=== PATIENT | male | born 1995 | race Hispanic/Latino ===

== ENCOUNTER 2016-07-24 18:02 | Observation (INO) | payer SELFPAY ==
[2016-07-24] VITALS (11 sets, daily range): BP systolic 114–143; BP diastolic 45–79; PULSE 56–82; RESP 12–21; O2SAT 96–100
[~2016-07-24] VITALS: Ht 172.7 cm; Wt 83.3 kg
[2016-07-24 19:03] LABS: BASOPHILS % (AUTO) 0.4 % (0-3); EOSINOPHILS % (AUTO) 0.5 % (0-5); MONOCYTES % (AUTO) 5.9 % (4-12); Mean Corpuscular Hemoglobin 30.5 pg (27.0-35.0); Mean Corpuscular Volume 87.3 fL (81-100); NEUTROPHILS % (AUTO) 76.9 % (40-74); Platelet Count 198 bil/L (150-400)
[2016-07-24 19:13] LABS: APPEARANCE,URINE CLEAR (CLEAR,HAZY); COLOR,URINE YELLOW (YELLOW); OCCULT BLOOD,URINE NEGATIVE (NEGATIVE); PH,URINE 5.5 (5.0-8.0); UROBILINOGEN,URINE NORMAL (NORMAL)
--- NOTE | 2016-07-24 19:25 | ED.REPORT ---
HPI-Abd Pain M Under 40 Date of Service Jul 24, 2016 ED Provider: Ferny Truong MD Pt is a 20 y.o. male who presents to the ED from c/o severe abdominal pain, worse on left, onset 1800 today. Pt reports associated nausea. He denies vomiting, fever, cough, and rhinorrhea. He also denies prior abdominal surgeries. Nursing Notes Stated Complaint: STOMACH PAIN Chief Complaint: Male Abdominal Pain Nursing Notes Reviewed: Yes Allergies: Coded Allergies: No Known Allergies (Unverified , 07/24/16) No Active Prescriptions or Reported Meds General Time Seen by MD: 19:00 Chief Complaint Abdominal pain Hx Obtained From: Patient Arrived By: Walk-in Sudden in Onset?: Yes Onset Occurred: 1 - 4 hours ago Symptom Duration: Since onset Location: : Diffuse: LLQ: LUQ Quality: Painful Severity: Current: Severe Context Related History: Denies: Abdominal surgery Recent Healthcare: No recent doctor visit, No recent hospitalization Similar Sx Previous: No Past Medical History Past Medical History None reported Past Surgical History None reported Social History Alcohol Use: Denies alcohol use Drug Use: Denies drug use Ambulatory Status Independent Review of Systems Constitutional: Denies: Fever Respiratory: Denies: Non-productive cough GI: Reports: Abdominal pain, Nausea, Denies: Vomiting Complete sys rev & neg: except as marked. Allergy / Immune: Denies: Rhinorrhea Physical Exam Initial Vital Signs Vital Signs (First) Date Time Temp Pulse Resp B/P Pulse Ox O2 Delivery O2 Flow Rate FiO2 07/24/16 18:28 36.8 66 18 143/79 99 Room Air Initial VS: Reviewed Head / Eyes: Atraumatic, Normocephalic Extremities: Vascular intact, Neuro intact Skin: Warm, Dry, No cyanosis Neurologic: Alert, Oriented, Nonfocal Psychiatric: Mood/affect normal, Behavior normal, Normal thought content General/Constitutional: Awake, Alert, Well developed, Well hydrated, Well nourished, Not toxic appearing Appearance / Presentation: Positive: In pain Respiratory / Chest: Atraumatic, Breath sounds NL, Breath sounds = bilat, No respiratory distress, No rales, No rhonchi, No wheezing, No retractions, No stridor Cardiovascular: Heart rate NL, Regular rhythm, Heart sounds NL, Peripheral circulation NL Abdomen: Atraumatic, Soft Tenderness/Guarding/Rebound: Positive: Tender LLQ..., Tender LUQ..., Tender RLQ..., Tender diffuse Back: Atraumatic Interpretation & Diagnostics Lab Results Interpretation Result Diagram: 07/24/16 1855 07/24/16 1855 Test 07/24/16 18:55 07/24/16 19:01 White Blood Count 12.4th/mm3 (3.8-10.1) Red Blood Count 4.79mil/mm3 (4.40-5.80) Hemoglobin 14.6g/dL (13.8-17.2) Hematocrit 41.8% (41.0-50.0) Mean Corpuscular Volume 87.3fL (81-100) Mean Corpuscular Hemoglobin 30.5pg (27.0-35.0) Mean Corpuscular Hemoglobin Concent 34.9% (32.0-37.0) Red Cell Distribution Width 12.6% (12.3-15.4) Platelet Count 198bil/L (150-400) Neutrophils (%) (Auto) 76.9% (40-74) Lymphocytes (%) (Auto) 16.1% (14-46) Monocytes (%) (Auto) 5.9% (4-12) Eosinophils (%) (Auto) 0.5% (0-5) Basophils (%) (Auto) 0.4% (0-3) Sodium Level 138mEq/L (134-144) Potassium Level 4.1mEq/L (3.5-5.2) Chloride Level 99mEq/L (97-108) Carbon Dioxide Level 24mmol/L (18-29) Blood Urea Nitrogen 13mg/dL (6-20) Creatinine 0.90mg/dL (0.76-1.27) Estimat Glomerular Filtration Rate 116mL/min (>59) Glucose Level 94mg/dL (60-99) Lactic Acid Level 0.7mmol/L (0.4-2.0) Calcium Level 9.6mg/dL (8.5-10.1) Magnesium Level 1.8mg/dL (1.6-2.6) Total Bilirubin 0.9mg/dL (0.0-1.2) Aspartate Amino Transf (AST/SGOT) 33U/L (0-50) Alanine Aminotransferase (ALT/SGPT) 23U/L (0-44) Alkaline Phosphatase 61U/L (25-150) Total Protein 7.1g/dL (6.4-8.4) Albumin 4.6g/dL (3.4-5.0) Lipase 13U/L (13-60) Hold Bateman Top Tube Received (Received) Urine Color Yellow (YELLOW) Urine Appearance Clear (CLEAR,HAZY) Urine pH 5.5 (5.0-8.0) Urine Specific [place] 1.030 (1.003-1.035) Urine Protein Negativemg/dL (NEG,TRACE) Urine Glucose (UA) Negativemg/dL (NEGATIVE) Urine Ketones 80mg/dL (NEGATIVE) Urine Occult Blood Negative (NEGATIVE) Urine Nitrite Negative (NEGATIVE) Urine Bilirubin Negative (NEGATIVE) Urine Urobilinogen Normalmg/dL (NORMAL) Urine Leukocyte Esterase Negative (NEGATIVE) Urine RBC 0-2/hpf (0-2) Urine WBC 0-5/hpf (0-5) Urine Epithelial Cells None/hpf (NONE-MOD) Urine Crystals None seen (NONE SEEN) Urine Bacteria Few/hpf (NONE-FEW) Urine Hyaline Casts None/lpf (NONE) Urine Granular Casts None seen (NONE SEEN) Urine Waxy Casts None seen (NONE SEEN) Urine Red Blood Cell Casts None seen (NONE SEEN) Urine White Blood Cell Casts None seen (NONE SEEN) Urine Mucus Present (None Seen) Urine Trichomonas None seen (NONE SEEN) Urine Yeast None (NONE SEEN) Urinalysis Comment None Urine Culture Reflexed Not indicated General Lab Results Interp 1: CBC - leukocytosis CT Abd / Pelvis Interpretation IMPRESSION: 1. Acute appendicitis with small amount of free fluid in the right lower quadrant and pelvis suspicious for possible rupture. No discrete abscess collection or free air. Findings discussed with Dr. Truong on 07/24/16 at 8:18 p.m. 2. Mild concentric bladder wall thickening may be due to nondistention or a nonspecific mild cystitis. Dictated by: Castillo Moore M.D. on 07/24/2016 at 20:15 Approved by: Castillo Moore M.D. on 07/24/2016 at 20:20 Re-Eval/Medical Decision Med Decision/Clinical Course 20-year-old male with acute appendicitis. Possible perforation. Discussed with Dr. Sampson and will take to surgery. Zosyn given. Last by mouth last night. Source of Hx: Old records Re-Evaluation/Progress : Time of Eval: 20:37 Re-Evaluation/Progress Note: Pt rechecked. Discussed imaging results and plan to admit, pt understands and agrees with plan. Consultation : Referral / Consult Name: Sanchez Sampson MD Consulted With: Surgeon Call Returned at: 20:24 Repair Cameraman: Will see patient, Accepts admit Note: Discussed pt condition, accepts admit. Will see pt in ED to evaluate. Counseled Regarding: Diagnosis Patient Discharge & Departure Primary Impression: Acute appendicitis Disposition: ADMITTED TO HOSPITAL Discharge Condition All VS Reviewed: Yes Condition: Stable Referrals: NOPCP (PCP) Scribe Attestation Portions of this note were transcribed by Payton Hollins. I, Dr. Truong personally performed the history, physical exam and medical decision-making; I reviewed and confirmed the accuracy of the information in the transcribed note. Signed by: Shabbir Finnegan, 07/24/16 and 2038. Ferny Truong MD Jul 24, 2016 19:25 PAYTON HOLLINS Jul 24, 2016 19:29
[2016-07-24 19:29] LABS: Magnesium 1.8 mg/dL (1.6-2.6)
[2016-07-24] MEDS ORDERED: 0.9% Sodium Chloride 1,000 ML IV ONE ×2 (19:30→20:10)
[2016-07-24] MEDS ORDERED: Ondansetron 2 mg/mL 2 mL Inj IVPUSH PRN ×3 (19:30→23:15)
--- NOTE | 2016-07-24 20:21 | DRSVH ---
PROCEDURE: CT ABDOMEN AND PELVIS WITH CONTRAST ([id number]) INDICATIONS: ABDOMEN PAIN TECHNIQUE: After the administration of oral and intravenous contrast, 5 mm thick sections acquired from the diap hragms to the symphysis. 5 mm thick coronal and sagittal reformats were performed. For radiation do se reduction, the following was used: automated exposure control, adjustment of mA and/or kV accordi ng to patient size. COMPARISON: None. FINDINGS: Image quality: Excellent. ABDOMEN: Lung bases: Lung bases are clear. Heart size is normal. Solid organs: Liver and spleen are normal in size and enhancement. Gallbladder is within normal sy its without calcified gallstones. Biliary system is non-dilated. Pancreas enhances normally. No ad renal nodules. Kidneys are normal in size and enhancement, without hydronephrosis. Peritoneum and bowel: Stomach, small bowel, and colon loops are normal in caliber and wall thickness . The appendix is mildly distended, measuring up to 8 mm, with wall enhancement. There is periappen diceal fat stranding and a small amount of free fluid in the right paracolic gutter. A small amount of free fluid is also demonstrated in the pelvis. No discrete abscess collection or free air. Nodes and vessels: No retroperitoneal or mesenteric adenopathy. Aorta and inferior vena cava are no rmal in caliber. Miscellaneous: No ventral hernias. PELVIS: Genitourinary: The urinary bladder is partially distended with suggestion of mild concentric wall thi ckening. Miscellaneous: No inguinal hernias or adenopathy. Bones: No suspicious bony lesions. No vertebral body compression fractures. IMPRESSION: 1. Acute appendicitis with small amount of free fluid in the right lower quadrant and pelvis suspici ous for possible rupture. No discrete abscess collection or free air. Findings discussed with Dr. Rodrigo Magaña on 07/24/16 at 8:18 p.m. 2. Mild concentric bladder wall thickening may be due to nondistention or a nonspecific mild cystiti s. Dictated by: Castillo Moore M.D. on 07/24/2016 at 20:15 Approved by: Castillo Moore M.D. on 07/24/2016 at 20:20
[2016-07-24] MEDS ORDERED: Piperacillin-Tazo 3.375 Gm Inj 3.375 GM in Dextrose 5% Minibag Plus 50 ML IV ONE (20:30)
[2016-07-24] MEDS ORDERED: Ondansetron 2 mg/mL 2 mL Inj ONE (20:53)
[2016-07-24] MEDS ORDERED: HYDROmorphone 2 mg/mL Inj ONE (20:53)
[2016-07-24] MEDS ORDERED: Glycopyrrolate 0.2 mg/mL 5 mL Inj ONE (20:53)
[2016-07-24] MEDS ORDERED: Rocuronium 10 mg/mL 5 mL Inj ONE (20:53)
[2016-07-24] MEDS ORDERED: Propofol 10,000 mCg/mL 20 mL Inj ONE (20:53)
[2016-07-24] MEDS ORDERED: fentaNYL-PF 50 mCg/mL 2 mL Inj ONE (20:53)
[2016-07-24] MEDS ORDERED: Dexamethasone 4 mg/mL Inj ONE (20:53)
[2016-07-24] MEDS ORDERED: Lidocaine PF 1% 30 mL Inj ONE (20:53)
[2016-07-24] MEDS ORDERED: Neostigmine 1 mg/mL 5 mL Inj ONE (20:53)
[2016-07-24] MEDS ORDERED: Lactated Ringer's 1,000 ML IV ONE ×2 (21:49→21:54)
[2016-07-24] MEDS ORDERED: Lactated Ringer's 1,000 ML IV SCH (21:49)
[2016-07-24] MEDS ORDERED: Lactated Ringer's 500 ML IV PRN (21:49)
--- NOTE | 2016-07-24 21:49 | PCM.HPANE ---
Patient Data Date of Service: Jul 24, 2016 Surgeon Admitting Provider:Sanchez Sampson MD Attending Provider:Sanchez Sampson MD Primary Care Physician:Hemalatha Other Provider:Andi Enciso Anesthesia Reason for Visit Appendicitis Ht/WT & BMI Height (Feet): 5 Height (Inches): 8 Weight (Kilograms): 82.27 Body Mass Index Allergies Coded Allergies: No Known Allergies (Unverified , 07/24/16) Diabetes History Hx Diabetes?: No Medications Home Meds Incl Beta Mark: No No Active Prescriptions or Reported Meds History Hx of Heart Problems?: No Cardiovascular History: Denies:: Congestive Heart Failure Hypertension Hx of Respiratory Problem?: No Respiratory History: Denies:: Tuberculosis Hx Neurologic Problems?: No Hx Surgeries?: No Hx Diabetes: No Hx Alcohol Use: NoHx Substance Use: NoHave You Smoked inLast 12 mo: No Stop/Bang KATYA Risk Assessment: Low Risk, <3 Yes Risk Assessment Category Category 1A: Patient has history of documented sleep apnea, and HAS NOT received any narcotic, sedative or anesthesia administration during this stay. Category 1B: Patient has history of documented sleep apnea, and HAS received any narcotic , sedative or anesthesia administration during this stay Category 2: Patient has SUSPECTED Obstructive Sleep Apnea, and HAS received any narcotic , sedative or anesthesia administration during this stay. Category 3: Patient has SUSPECTED Obstructive Sleep Apnea and HAS NOT received narcotic, sedative or anesthesia administration during this stay. Category 4: Outpatient in Procedural Areas with known sleep apnea or who screen positive for High Risk via the STOP/BANG questionnaire. Exam Exam Vital Signs Vital Signs Date Time Temp Pulse Resp B/P Pulse Ox O2 Delivery O2 Flow Rate FiO2 07/24/16 20:10 37 68 16 130/68 98 Room Air 07/24/16 19:35 36.8 72 20 136/72 100 Room Air 07/24/16 18:28 36.8 66 18 143/79 99 Room Air General Appearance: Alert, Oriented X3, Cooperative, Mild Distress HEENT/AIRWAY: MP 2 Lungs: Normal Air Movement Heart: Exam Unremarkable Meds/Labs/Diagnostics Admission Meds Current Medications Sodium Chloride 1,000 ml @ 0 mls/hr Q0M ONCE IV Last administered on t 19:44; Start 07/24/16 at 19:30; Stop 07/24/16 at 19:32; Status DC Sodium Chloride 1,000 ml @ 0 mls/hr Q0M ONCE IV Last administered on 20:15; Start 07/24/16 at 20:10; Stop 07/24/16 at 20:11; Status DC Piperacillin Sod/ Tazobactam Sod/ Dextrose/Water (Zosyn 3.375 Gm Inj/D5W Minibag Plus) 50 ml @ 100 mls/hr ONCE ONCE IV Last administered on 07/24/16 20:51; Start 07/24/16 at 20:30; Stop 07/24/16 at 20:59; Status DC Labs Test 07/24/16 18:55 07/24/16 19:01 White Blood Count 12.4th/mm3 (3.8-10.1) Red Blood Count 4.79mil/mm3 (4.40-5.80) Hemoglobin 14.6g/dL (13.8-17.2) Hematocrit 41.8% (41.0-50.0) Mean Corpuscular Volume 87.3fL (81-100) Mean Corpuscular Hemoglobin 30.5pg (27.0-35.0) Mean Corpuscular Hemoglobin Concent 34.9% (32.0-37.0) Red Cell Distribution Width 12.6% (12.3-15.4) Platelet Count 198bil/L (150-400) Neutrophils (%) (Auto) 76.9% (40-74) Lymphocytes (%) (Auto) 16.1% (14-46) Monocytes (%) (Auto) 5.9% (4-12) Eosinophils (%) (Auto) 0.5% (0-5) Basophils (%) (Auto) 0.4% (0-3) Sodium Level 138mEq/L (134-144) Potassium Level 4.1mEq/L (3.5-5.2) Chloride Level 99mEq/L (97-108) Carbon Dioxide Level 24mmol/L (18-29) Blood Urea Nitrogen 13mg/dL (6-20) Creatinine 0.90mg/dL (0.76-1.27) Estimat Glomerular Filtration Rate 116mL/min (>59) Glucose Level 94mg/dL (60-99) Lactic Acid Level 0.7mmol/L (0.4-2.0) Calcium Level 9.6mg/dL (8.5-10.1) Magnesium Level 1.8mg/dL (1.6-2.6) Total Bilirubin 0.9mg/dL (0.0-1.2) Aspartate Amino Transf (AST/SGOT) 33U/L (0-50) Alanine Aminotransferase (ALT/SGPT) 23U/L (0-44) Alkaline Phosphatase 61U/L (25-150) Total Protein 7.1g/dL (6.4-8.4) Albumin 4.6g/dL (3.4-5.0) Lipase 13U/L (13-60) Hold Bateman Top Tube Received (Received) Urine Color Yellow (YELLOW) Urine Appearance Clear (CLEAR,HAZY) Urine pH 5.5 (5.0-8.0) Urine Specific [place] 1.030 (1.003-1.035) Urine Protein Negativemg/dL (NEG,TRACE) Urine Glucose (UA) Negativemg/dL (NEGATIVE) Urine Ketones 80mg/dL (NEGATIVE) Urine Occult Blood Negative (NEGATIVE) Urine Nitrite Negative (NEGATIVE) Urine Bilirubin Negative (NEGATIVE) Urine Urobilinogen Normalmg/dL (NORMAL) Urine Leukocyte Esterase Negative (NEGATIVE) Urine RBC 0-2/hpf (0-2) Urine WBC 0-5/hpf (0-5) Urine Epithelial Cells None/hpf (NONE-MOD) Urine Crystals None seen (NONE SEEN) Urine Bacteria Few/hpf (NONE-FEW) Urine Hyaline Casts None/lpf (NONE) Urine Granular Casts None seen (NONE SEEN) Urine Waxy Casts None seen (NONE SEEN) Urine Red Blood Cell Casts None seen (NONE SEEN) Urine White Blood Cell Casts None seen (NONE SEEN) Urine Mucus Present (None Seen) Urine Trichomonas None seen (NONE SEEN) Urine Yeast None (NONE SEEN) Urinalysis Comment None Urine Culture Reflexed Not indicated Plan Impression Patient chart reviewed, patient interviewed and anesthestic plan with risks, benefits, and alternatives discussed, and informed consent obtained. ASA Physical Status: ASA1 Normal Healthy Anesthetic Plan: GA Bene/Risks/Altern/Consents: Yes HP Complete Prior to Induction: Yes Luciano Akhtar MD Jul 24, 2016 21:33
[2016-07-24] MEDS ORDERED: Dexamethasone 4 mg/mL Inj IVPUSH PRN (21:50)
[2016-07-24] MEDS ORDERED: fentaNYL-PF 50 mCg/mL 2 mL Inj IVPUSH PRN (21:50)
[2016-07-24] MEDS ORDERED: MetoCLOpramide 5 mg/mL 2 mL Inj IVPUSH PRN (21:50)
[2016-07-24] MEDS ORDERED: Atropine 0.4 mg/mL Inj IVPUSH PRN (21:50)
[2016-07-24] MEDS ORDERED: Phenylephrine 10,000 mCg/mL Inj IVPUSH PRN (21:50)
[2016-07-24] MEDS ORDERED: EPHEDrine Sulfate 50 mg/mL Inj IVPUSH PRN (21:50)
[2016-07-24] MEDS ORDERED: Labetalol 5 mg/mL 4 mL Inj IV PRN (21:50)
[2016-07-24] MEDS ORDERED: hydrALAZINE 20 mg/mL Inj IVPUSH PRN (21:50)
[2016-07-24] MEDS ORDERED: HYDROmorphone 1 mg/mL Inj IVPUSH PRN (21:50)
[2016-07-24] MEDS ORDERED: Bupivacaine-MPF 0.5% W/EPI 30 mL Inj INFILTRATE ONE (21:59)
--- NOTE | 2016-07-24 23:00 | PCM.ANEP1 ---
Post Anesthesia Phase 1 PACU Phase 1 Assessment Date of Service: Jul 24, 2016 Vital Signs Vital Signs Date Time Temp Pulse Resp B/P Pulse Ox O2 Delivery O2 Flow Rate FiO2 07/24/16 20:10 37 68 16 130/68 98 Room Air 07/24/16 19:35 36.8 72 20 136/72 100 Room Air 07/24/16 18:28 36.8 66 18 143/79 99 Room Air Anesthetic Administered: GA Level of Alertness: Drowsy, not talking Pain: No Nausea or Vomiting: No Airway Device: Oralpharangeal Airway Oxygen Delivery: Simple Mask Lungs: Normal Air Movement Luciano Akhtar MD Jul 24, 2016 23:00
[2016-07-24] MEDS ORDERED: diphenhydrAMINE 25 mg Capsule PO PRN (23:15)
[2016-07-24] MEDS ORDERED: HYDROmorphone 0.5 mg/0.5 mL iSecure Syringe IV PRN (23:15)
[2016-07-24] MEDS ORDERED: Acetaminophen IV 1,000 MG in IV Premix 1 EACH IV PRN (23:15)
[2016-07-24] MEDS ORDERED: Polyethylene Glycol (PEG) 17 Gm Powder PO ONE (23:15)
[2016-07-25] MEDS: D5 0.45% NaCl + KCl 20 mEq/L 1,000 ML IV SCH ×2 (00:05→09:15)
--- NOTE | 2016-07-25 00:10 | NUR ---
Arrival on [facility] Report taken from recovery at 2325. pt arrives on unit at 2355 sleeping on bed. VSS and pt drowsy, family and friends come in to room to visit. Pt does open his eyes and respond to [employer] questions as well as family. No complaints of N/V or pain. PT and his parents are bilingual, admission sheet to be completed when pt is better able to respond. Pt on Room air, TELE, running IVF D5 1/2NS with 20K at 100 ml/hr, dressings CDI.
--- NOTE | 2016-07-25 00:26 | HP PRE OP ---
[address] [address] PREOPERATIVE HISTORY AND PHYSICAL PATIENT: HARISH SMITH : 1995 MR#: [id number] ADMIT: 07/24/2016 JOB ID: [id number] CHIEF COMPLAINT/IDENTIFICATION: A 20-year-old male in the emergency department with probable appendicitis. HISTORY OF PRESENT ILLNESS: The patient presents with abdominal pain that has progressed since early today. Has associated nausea, no vomiting, no diarrhea. Otherwise healthy. PAST MEDICAL HISTORY: Unremarkable. MEDICATIONS: None. ALLERGIES: None. SOCIAL HISTORY: Lives with his parents. Negative tobacco. Negative daily alcohol. He is in college, as well as works at [employer]. FAMILY HISTORY: Noncontributory. REVIEW OF SYSTEMS: Negative. PHYSICAL EXAMINATION: Vital signs recorded in the chart. He appears uncomfortable, holding quite still. He has both right lower quadrant and left lower quadrant tenderness to palpation and percussion. LABORATORIES: White count is 12.4, hematocrit is 42. Electrolytes are normal. LFTs are normal. Urine is negative. Abdominal CT scan. I have reviewed both the films and report. I concur that the findings are most consistent with acute appendicitis. IMPRESSION AND PLAN: Probable acute appendicitis. I have recommended laparoscopic appendectomy. After full discussion of risks, benefits and possible complications appendectomy. He agrees to proceed. He has been n.p.o. since last night. We will proceed with surgery today.
--- NOTE | 2016-07-25 00:39 | PCM.ANEP2 ---
Post Anesthesia Evaluation ASA/CMS Post Anesthesia Date of Service: Jul 25, 2016 VS in Patient's Normal Range?: Yes Resp Stable; Airway Patent?: Yes CV Function & Hydration Stable: Yes Mental Status Recovered?: Yes Pain control Satisfactory?: Yes N/V Control Satisfactory?: Yes Luciano Akhtar MD Jul 25, 2016 00:39
--- NOTE | 2016-07-25 00:43 | OP ---
[address] [address] OPERATIVE REPORT PATIENT: HARISH SMITH : 1995 MR#: [id number] ADMIT: 07/24/2016 JOB ID: [id number] DATE OF SURGERY: 07/24/2016 PREOPERATIVE DIAGNOSIS(ES): Appendicitis. POSTOPERATIVE DIAGNOSIS(ES): Final diagnosis pending pathologic review. SURGEON: Sanchez Sampson MD. PROCEDURE: Laparoscopic appendectomy. INDICATION: A 20-year-old male who presented with signs and symptoms consistent with appendicitis. His examination demonstrated bilateral lower abdominal tenderness, right greater than left, white count of 12.4, and a CT scan with an abnormal appendix consistent with acute appendicitis. He is brought to the operating room for laparoscopic appendectomy. FINDINGS: Possible negative appendectomy. See below for details. PROCEDURE: Patient brought to the operating room. SCOAP protocol was followed. He had received therapeutic antibiotics in the emergency department approximately two hours prior to incision time, and the decision was made not to repeat his antibiotic dosing. A time-out was performed. The abdomen was prepped and draped in sterile fashion. We obtained access with a Veress needle, followed by placement of optical trocars. There was no free air. There was a minimal amount of clear free fluid in the pelvis. The patient was placed head down and tilted to the left. He had a fairly high cecum and we could identify normal-appearing base of the appendix, retrocecal appendix. There is no sign of a great deal of inflammation behind the cecum as the appendix went up along the right paracolic gutter, almost to the hepatic flexure. At this point, because the appendix was not clearly inflamed, in the right gutter I proceeded to explore the remaining abdomen. Down in the pelvis there was no ongoing inflammation. The bladder was not inflamed. The fluid in the pelvis was fairly clear and serous. We ran the small bowel midway to the ligament of Treitz and did not identify any abnormality, specifically no Meckel's diverticulum and no evidence of mesenteric fat wrapping consistent with inflammatory bowel disease. The patient's mesenteric lymph nodes do not seem abnormally enlarged as well. 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 However, there was no acute inflammation. We looked up above the stomach and there was no sign of a perforated gastric ulcer, no fluid that was visible in the lesser sac. At the end of the procedure, we did take down some of the adhesions from the right colon up around the gallbladder and there was no sign of a duodenal ulcer or thickening of the bowel or sign of acute perforation. We now turned our attention back to the appendix. We dissected out the base of the appendix and divided it right at the base of the stapler. I was then able to retract the colon medially and used cautery to stay right on the appendix and take down the mesoappendix, which was mildly edematous but without hyperemia or acute inflammation. The appendix was quite long and we extended it in a retrocecal fashion up to the hepatic flexure. We took the appendix down with cautery just at its mesenteric origin and hemostasis was good. We removed the appendix without wound contamination through the 12 mm port. We now inspected the area and still could not see any sign of perforation or acute inflammation other than some edema. We now irrigated out the abdomen with a copious amount of saline, suctioned out all of our irrigation, checked for hemostasis, and then removed the ports under laparoscopic vision followed by abdominal wall and skin closure with absorbable suture. The patient tolerated the procedure well.
[2016-07-25 04:17] VITALS: BP 128/64; PULSE 98; RESP 20; O2SAT 98
[2016-07-25] MEDS ORDERED: Ibuprofen PO (10:05)
[2016-07-25] MEDS ORDERED: OXYC5TAB72 PO (10:05)
--- NOTE | 2016-07-25 10:08 | PCM.DISURG ---
Surgical Discharge Instruction Date of Service Jul 25, 2016 Dates of Hospitalization Date of Hospital Admission Jul 24, 2016 at 20:52 Providers Admitting Physician: Sanchez Sampson MD Primary Care Physician: Hemalatha Attending Physician: Sanchez Sampson MD Discharge Diagnosis Discharge Diagnosis Appendicitis Post Operative diagnosis Laparoscopic appendectomy Diet Discharge Diet: No restrictions Activity Discharge Activity-General: No lifting >15 pounds for 2 weeks, No driving while taking narcotic Dressing and Incisional Care Dressing Care: Allow Steri Stripes to fall off, Remove outer dressing after 24 hrs Hygiene: May shower Additional Instructions Discharge Instructions You may return to normal activity as you feel better. You had emergency surgery and may require reduced schedule or activity at work and/or school over the next 4 weeks Follow Up Plan Follow Up Plan with [facility] in 1-2 weeks for routine review of pathology and wound check Sanchez Sampson MD Jul 25, 2016 10:08
--- NOTE | 2016-07-25 10:53 | PROG NOTE ---
[address] [address] PROGRESS NOTE PATIENT: HARISH SMITH : 1995 MR#: [id number] ADMIT: 07/24/2016 JOB ID: [id number] DATE: 07/25/2016 SUBJECTIVE: Postop day one laparoscopic appendectomy. Despite the fact that his appendix did not look all that inflamed, he feels significantly better than prior to surgery. He has tolerated a p.o. diet. He is afebrile with stable vital signs. His dressings are intact without undue erythema or bleeding. IMPRESSION AND PLAN: Doing well. I will discharge him.
[2016-07-25 11:54] VITALS: BP 138/68; PULSE 62; RESP 16; O2SAT 98
--- NOTE | 2016-07-25 13:00 | NUR ---
Pain/dizziness Pt had D/C orders, had not yet been out of bed, got pt up, pt stated he was dizzy and nauseous and pain became bad, administered 4mg IV Zofran, and PO Ibuprofen. pt stated pain improved and the nausea was gone. Pt attempted to get up again an hour later, pt stated pain became very bad to the point he was shaking, administered PO oxycodone, pt slept for an hour. and pain was mostly gone when he awoke.
--- NOTE | 2016-07-25 13:09 | PCM.DC.SUR ---
Discharge Summary Date of Service: Jul 25, 2016 Date of Hospital Admission: Jul 24, 2016 at 20:52 Date of Operation(s): 07/24/16 Date of Discharge: 07/25/16 Diagnosis at Time of Discharge Appendicitis Problems: Operation Laparscopic Appendectomy Brief History and Physical: A 20-year-old male who presented with signs and symptoms consistent with appendicitis. His examination demonstrated bilateral lower abdominal tenderness , right greater than left, white count of 12.4, and a CT scan with an abnormal appendix consistent with acute appendicitis. He is brought to the operating room for laparoscopic appendectomy. Consultants: General surgery; Dr. Sanchez Sampson [facility] Course: POD # [address] Sampson's progress note SUBJECTIVE: Postop day one laparoscopic appendectomy. Despite the fact that his appendix did not look all that inflamed, he feels significantly better than prior to surgery. He has tolerated a p.o. diet. He is afebrile with stable vital signs. His dressings are intact without undue erythema or bleeding. IMPRESSION AND PLAN: Doing well. I will discharge him. Pathology: Pending Disposition: Home Follow-up Plan: [facility] Clinic in 1-2 weeks for routine review of pathology and wound check ([Ibuprofen]) 200 MG TABLET 200 MG PO QID PRN PRN For Pain take 1 or 2 pills every 6 hours as needed oxyCODONE (oxyCODONE) 5 Mg Tablet 5 MG PO Q4H PRN PRN For Moderate Pain Alexandria Bae PA-C Jul 25, 2016 13:09
--- NOTE | 2016-07-25 13:11 | NUR ---
Social Work:screening/discharge: Data:EMR reviewed. Pt is a 20 y/o male who was admitted on 07/24/16 for appendicitis per H&P. Pt is medically stable to discharge home today. RCA to screen pt for insurance. Pt has been up ambulating independent in his room. No discharge needs identified. All updated and agreeable to plan. Assessment:Pt who is independent at baseline. Plan:Pt to discharge home today via POV. No discharge needs identified. All updated and agreeable to plan. VIKTORIYA Sotelo
--- NOTE | 2016-07-25 18:18 | NUR ---
Discharge Pt left with family in stable condition with all belongings at 1530, IV d/c'd, pt pain well under control, no complaints of dizziness or nausea. Instructions for scheduling follow up appointment given.
--- NOTE | 2016-07-26 01:45 | DIS ---
[address] [address] DISCHARGE SUMMARY PATIENT: HARISH SMITH : 1995 MR#: [id number] ADMIT: 07/24/2016 JOB ID: [id number] DIS: 07/25/2016 DISCHARGE DIAGNOSIS: Appendicitis. OPERATIONS AND PROCEDURES: Laparoscopic appendectomy. HOSPITAL COURSE: A 20-year-old male presented with signs and symptoms consistent with appendicitis. He underwent laparoscopic appendectomy. He will be discharged on postop day one with oral oxycodone and ibuprofen for pain. He will follow up in 1-2 weeks with [facility] General [facility].
--- NOTE | 2016-07-28 10:08 | PATH ---
SURGICAL PATHOLOGY Attending Physician:Sanchez Sampson MD CASE STATUS: Signed Out PATIENT NAME: HARISH SMITH PID: [id number] : 1995 DATE COLLECTED:07/24/2016 00:00 SPECIMEN: Appendix CLINICAL HISTORY: APPENDIX FINAL DIAGNOSIS: 1.APPENDIX: ACUTE APPENDICITIS. ICD10 CODE K35.80 GROSS DESCRIPTION: The specimen is received in one formalin filled container labeled with the patient's name, sublabeled "appendix" and consists of one cylindrical diop appendix measuring 8.5 x 1.1 x 1.1 CM. The serosal surface is light castañeda diop, smooth and glistening. There is a small amount of attached fatty tissue. Sectioning reveals the wall to be thickened to approximately 0.2-0.3 CM in thickness. The lumen contains a light price-diop friable material. Diamond [employer] sections are submitted in one cassette. 07/25/2016 DAC MICRO DESCRIPTION: See diagnosis. ICD-9 CODES: CPT CODES: 1: 92773 Electronically Signed Out Gen Foster MD [facility] Pathology [facility] [address], [place] [address] Technical component performed at [facility], [facility] [address], [place], [address]
== END 2016-07-25 15:30 | disposition home or self-care (01) ==
LOC: SED 18:02 → OSC 20:52 → UNDOADMOB 20:52 → UNDODISOB 07-25 15:30 → SOU 07-26 14:07 → OSC 07-26 14:07
PROVIDERS: ADMIT Surgery; ATTEND Surgery
DX: K35.80 Unspecified acute appendicitis (principal)
CPT/HCPCS: 36415; 44970; 74177; 80053; 81000; 83605; 83690; 83735; 85025; 96365; 96375; 96376; 99285; G0378; J1100; J1170; J2175; J2250; J2270; J2405; J2543; J2710; J3010; J7030; J7120; Q9967